=== PATIENT | female | born 1960 | race Caucasian/White ===

== ENCOUNTER 2024-02-07 09:32 | Outpatient (OUT) | payer BC, SELFPAY ==
--- NOTE | 2024-02-07 11:00 | CA_ITS ---
Patient Name: FRANCISCO ROMANO MR#: [id number] : 1960 Exam Date: 02/07/2024 Ordering Doctor: DANYEL BOONE CNP ECHOCARDIOGRAM REPORT PROCEDURE: CA ECHO DOPPLER COMPLETE INDICATIONS: Valvular regurgitation, aortic aneurysm COMPARISON: None. DESCRIPTION: COMPLETE ECHOCARDIOGRAM Real-time transthoracic echocardiography with 2D, M-mode, spectral and color flow Doppler performed. QUALITY: Technical quality was good. LEFT VENTRICLE: Normal chamber size. Normal left ventricular wall thickness. LV EF: Global left ventricular systolic function is normal. Calculated left ventricular ejection fraction is 64%. No segmental wall motion abnormalities. DIASTOLIC: Normal diastolic function. ATRIAL SEPTUM: Inadequately seen. LEFT ATRIUM: Normal chamber size. RIGHT ATRIUM: Normal chamber size. RIGHT VENTRICLE: Normal chamber size. Normal right ventricular systolic function. TRICUSPID VALVE: Normal mobility and thickness. Mild regurgitation. No evidence of pulmonary hypertension. RVSP 24mmHg MITRAL VALVE: Normal mobility and thickness. No evidence of mitral valve stenosis. There is no mitral annular calcification. Trivial mitral regurgitation. AORTIC VALVE: Normal trileaflet appearance. Thickened aortic valve. Normal leaflet mobility. No evidence of aortic valve stenosis. Mild aortic regurgitation. AORTIC ROOT: Normal diameter and appearance. Mild dilatation of the ascending aorta measuring 3.7cm. PULMONIC VALVE: Normal thickness and mobility. No stenosis. Trivial regurgitation. PERICARDIUM: No evidence of pericardial effusion. IVC: Collapses with inspirations. Normal size. CONCLUSION: 1. Global left ventricular systolic function is normal; visually estimated ejection fraction is 60 to 65% 2. Normal right ventricular size and systolic function 3. Mild tricuspid regurgitation 4. Mild aortic regurgitation 5. Mildly dilated ascending aorta Adult Echocardiography Procedure Report Left Ventricle LVEDD (3.7 - 5.6 cm): 4.52 cm LVESD (2.2 - 4.0 cm): 3.09 cm LVIVS thickness (0.6 - 1.2 cm): 0.69 cm LVPW thickness (0.5 - 1.0 cm): 0.64 cm e': 0.11 m/s E - e': 6.30 LVOT Max Gradient: 3.17 mm[Hg] LVOT Area (cm2): 0.89 m/s Peak Velocity (LVOT): 0.89 m/s Mean Velocity (LVOT): 0.55 m/s LVOT Diameter 1.89 cm Left Ventricular Ejection Fraction: 63.67 % Left Atrium LA Volume Index (2D A2C): 17.14 ml/m2 Left Atrium Systolic Dimension: 2.61 cm Mitral Valve MV E to A Ratio: 1 Mitral Valve A-Wave Peak Velocity: 0.70 m/s Mitral Valve E-Wave Peak Velocity: 0.70 m/s Right Ventricle RV Internal Diastolic Dimension: 3.67 cm Aorta AO Root Diam: 3.18 cm Ascending Ao Diam: 3.70 cm Aortic Valve AoV Area (Pe[place]): 1.96 cm2, 1.96 cm2 AoV Area (VTI): 1.86 cm2, 1.86 cm2 Deceleration [place]: 1.15 m/s2 Pressure Half-Time: 757.12 ms Peak Velocity(Antegrade Flow): 1.27 m/s Peak Gradient(Antegrade Flow): 6.41 mm[Hg] Mean Velocity(Antegrade Flow): 0.85 m/s Mean Gradient(Antegrade Flow): 3.36 mm[Hg] Velocity Time Integral: 32.45 cm Tricuspid Valve Peak Velocity (Regurgitant Flow): 2.29 m/s, 2.23 m/s Pulmonic Valve Mean Gradient: 1.33 mm[Hg] Mean Velocity: 0.54 m/s Peak Velocity: 0.75 m/s, 0.65 m/s Peak Gradient: 2.22 mm[Hg], 1.70 mm[Hg] Right Atrium Right Atrium Systolic Pressure: 53.88 ml, 53.88 ml Dictated by: Kong Martinez M.D. on 02/07/2024 at 14:59 Approved by: Kong Martinez M.D. on 02/07/2024 at 15:03
== END 2024-02-07 09:33 | disposition home or self-care (01) ==
LOC: CARD 09:36
PROVIDERS: PCP Family Medicine; Visit Provider Nurse Practitioner Family
DX: I48.0 Paroxysmal atrial fibrillation (principal); I47.10 Supraventricular tachycardia, unspecified; I36.1 Nonrheumatic tricuspid (valve) insufficiency; I77.819 Aortic ectasia, unspecified site
CPT/HCPCS: 93306

== ENCOUNTER 2024-06-05 08:21 | Emergency (ER) | payer BC, SELFPAY ==
[2024-06-05] VITALS (9 sets, daily range): BP systolic 122; BP diastolic 63; PULSE 63–72; TEMP 36.7; O2SAT 98–100
--- NOTE | 2024-06-05 08:33 | ECG_ITS ---
[facility] Test Date: 2024-06-05 Pat Name: FRANCISCO ROMANO Department: Room: - Gender: Female [employer] Driver: : 1960 Requested By: GARY MAURO Order Number: [id number] Reading MD: RUTH DACOSTA Measurements Intervals [place] Rate: 67 P: 66 ME: 130 QRS: 46 QRSD: 84 T: 62 QT: 394 QTc: 410 Interpretive Statements 1100 Sinus rhythm 9110 normal ECG Compared to ECG 11/22/2021 11:33:03 No significant changes Electronically Signed On 06-05-2024 23:07:06 EDT by RUTH DACOSTA
[2024-06-05 08:48] LABS: Basophils Absolute Auto 0.1 10^3/uL (0.0-0.1); Basophils Percent Auto 0.6 % (0.2-2.0); Eosinophils Absolute Auto 0.2 10^3/uL (0.0-0.7); Eosinophils Percent Auto 2.4 % (0.9-7.0); Hematocrit 40.6 % (36.0-48.0); Hemoglobin 13.2 g/dL (12.0-16.0); Immature Granulocytes Abs Auto 0.01 10^3/uL (0.00-0.03); Immature Granulocytes Pct Auto 0.1 % (0.0-0.5); Lymphocytes Absolute Auto 3.4 10^3/uL (1.2-3.8); Lymphocytes Percent Auto 42.8 % (20.5-60.0); Mean Corpuscular HGB Conc 32.5 g/dL (29.9-35.2); Mean Corpuscular Hemoglobin 28.6 pg (26.7-34.0); Mean Corpuscular Volume 88.1 fL (81.0-99.0); Mean Platelet Volume 10.1 fL (9.5-13.5); Monocytes Absolute Auto 0.5 10^3/uL (0.3-0.8); Monocytes Percent Auto 6.3 % (1.7-12.0); Neutrophils Absolute Auto 3.8 10^3/uL (1.4-6.5); Neutrophils Percent Auto 47.8 % (43.0-75.0); Platelet Count 265 10^3/uL (150-450); Red Blood Count 4.61 10^6/uL (4.20-5.40); Red Cell Distribution Width 13.2 % (11.0-15.0); White Blood Count 7.9 10^3/uL (4.0-11.0)
[2024-06-05 08:59] LABS: D Dimer 0.59 mg/L FEU (<=0.59)
[2024-06-05 09:02] LABS: Alanine Aminotransferase 43 U/L (14-59); Albumin Globulin Ratio 0.8; Albumin Level 3.5 g/dL (3.4-5.0); Alkaline Phosphatase 95 U/L (46-116); Anion Gap 11.3; Aspartate Amino Transferase 22 U/L (15-37); BUN Creatinine Ratio 13.7; Bilirubin Total 0.5 mg/dL (0.2-1.0); Calcium 9.3 mg/dL (8.5-10.1); Carbon Dioxide 27.7 mmol/L (21.0-32.0); Chloride 101 mmol/L (98-107); Estimated GFR (African America >60 (>=60); Estimated GFR (Non-African Ame >60 (>=60); Globulin 4.3 g/dL; Glucose 119 mg/dL (74-106); Sodium 136 mmol/L (136-145); Total Protein 7.8 g/dL (6.4-8.2)
--- NOTE | 2024-06-05 09:05 | XR_ITS ---
The [address] [address] Patient Name: FRANCISCO ROMANO MRN: [id number] date: 1960 Sex: F Assigned Patient Location: ER Current Patient Location: ER Accession/Order Number: [id number] Exam Date: 06/05/2024 09:10 Report Date: 06/05/2024 09:30 At the request of: SO SAM Procedure: XR chest 2V EXAM: XR chest 2V HISTORY: . Shortness of breath . COMPARISON: None. TECHNIQUE: Total and lateral chest FINDINGS: Heart and vascularity are unremarkable. Lungs are free of focal infiltrates. No bony abnormality is appreciated. Early spondylosis of the spine is noted. There is a slight scoliotic deformity of the spine with convexity to the right. EKG leads overlie the chest. XR/XR chest 2V IMPRESSION: No acute heart or lung disease identified. Electronically authenticated by: HAILY ANNE Date: 06/05/2024 09:30
--- NOTE | 2024-06-05 09:08 | ED_ITS ---
HPI HPI - General Adult General Chief complaint: Chest Pain Stated complaint: SOB, CHEST PAIN, DIZZY, IRREGULAR HEARTBEAT Time Seen by Provider: 06/05/24 08:24 Source: patient Mode of arrival: Wheelchair Limitations: no limitations History of Present Illness HPI narrative: Patient presents to ED complaining of heart palpitations and chest tightness. She said she has a history of atrial tachycardia and is on metoprolol for this. She said she took an extra metoprolol because she felt like her heart was palpating a lot recently. She said this morning it was really bad so she came in for further evaluation in the ED. Patient denies vomiting diaphoresis or syncope but felt lightheaded with her heart palpitations. No abdominal pain. Patient denies history of heart cath or pacemaker. She said she sees a community education specialist for management of the atrial tachycardia and palpitations. Related Data Home Medications ?Medication ?Instructions ?Recorded ?Confirmed metoprolol succinate 25 mg 25 mg PO DAILY 06/05/24 06/05/24 tablet,extended release 24 hr Allergies Allergy/AdvReac Type Severity Reaction Status Date / Time ibuprofen Allergy Severe Unknown Verified 06/05/24 08:28 flecainide Allergy Intermediate Numbness Verified 06/05/24 08:28 propafenone Allergy Intermediate Numbness Verified 06/05/24 08:28 Opioid HPI Opioid Management Most Recent Opioid Data: Last Pain Scale 4 06/05/24 08:46 Last ED Pain Assessment 06/05/24 08:46 Review of Systems ROS Status of ROS 10 or more systems reviewed and unremark able except as noted in history and below Exam Narrative Exam Narrative: Time Seen: [] Vital Signs: [Per nurse's notes.] General: [Alert] Skin: [Warm, dry, no rash.] Head: [Normocephalic, atraumatic.] Neck: [Supple, trachea midline.] Eye: [Pupils are equal, round and reactive to light, extraocular movements are intact, normal conjunctiva.] Ears, nose, mouth and throat: oral mucosa moist. Cardiovascular: [Regular rate and rhythm, no murmur.] Respiratory: [Lungs are clear to auscultation, respirations are non-labored, breath sounds are equal.] Chest wall: [No tenderness, no deformity.] Gastrointestinal: [Soft, nontender, non distended, normal bowel sounds.] MSK: 5 out of 5 muscle strength x 4 extremities no calf pain or edema Lymphatics: [No lymphadenopathy.] Psychiatric: [Cooperative, appropriate mood & affect.] Neurological: [Alert and oriented to person, place, time, and situation, no focal neurological deficit observed.] Constitutional Vital Signs, click to edit/add: Last Vital Signs Temp 98.1 F 06/05/24 08:28 Pulse 72 06/05/24 09:20 Resp 21 H 06/05/24 09:20 BP 122/63 06/05/24 08:28 Pulse Ox 98 06/05/24 09:20 O2 Del Method Room Air 06/05/24 08:45 Course Vital Signs Vital signs: Vital Signs Blood Pressure 122/63 06/05/24 08:27 Pulse Oximetry 100 06/05/24 08:27 Temperature 98.1 F 06/05/24 08:28 Pulse Rate 72 06/05/24 09:20 Respiratory Rate 21 H 06/05/24 09:20 Blood Pressure 122/63 06/05/24 08:28 Pulse Oximetry 98 06/05/24 09:20 Oxygen Delivery Method Room Air 06/05/24 08:45 Medical Decision Making MDM Narrative Medical decision making narrative: Patient's labs are negative for acute findings. Blood pressure is normal, heart rate normal, no arrhythmias seen in ED. EKG nonacute. Thyroid normal and D- dimer negative. Patient is to follow-up with her family doctor, return to ED if worsening symptoms. See cardiology as scheduled in June, try and move the appointment up if they have any openings Patient states she will call Differential Diagnosis Differential Diagnosis: Hyperthyroid, angina, anxiety, palpitations, Lab Data Lab results reviewed: Yes I reviewed the patient's lab results Labs: Lab Results 06/05/24 Range/Units 08:36 WBC 7.9 (4.0-11.0) 10^3/uL RBC 4.61 (4.20-5.40) 10^6/uL Hgb 13.2 (12.0-16.0) g/dL Hct 40.6 (36.0-48.0) % MCV 88.1 (81.0-99.0) fL MCH 28.6 (26.7-34.0) pg MCHC 32.5 (29.9-35.2) g/dL RDW 13.2 (11.0-15.0) % Plt Count 265 (150-450) 10^3/uL MPV 10.1 (9.5-13.5) fL Neut % (Auto) 47.8 (43.0-75.0) % Lymph % (Auto) 42.8 (20.5-60.0) % [place] % (Auto) 6.3 (1.7-12.0) % Eos % (Auto) 2.4 (0.9-7.0) % Baso % (Auto) 0.6 (0.2-2.0) % Neut # (Auto) 3.8 (1.4-6.5) 10^3/uL Lymph # (Auto) 3.4 (1.2-3.8) 10^3/uL [place] # (Auto) 0.5 (0.3-0.8) 10^3/uL Eos # (Auto) 0.2 (0.0-0.7) 10^3/uL Baso # (Auto) 0.1 (0.0-0.1) 10^3/uL Abs Immat Gran (auto) 0.01 (0.00-0.03) 10^3/uL Imm/Tot Granulo (auto) 0.1 (0.0-0.5) % D-Dimer 0.59 (<=0.59) mg/L FEU Sodium 136 (136-145) mmol/L Potassium 4.0 (3.5-5.1) mmol/L Chloride 101 (98-107) mmol/L Carbon Dioxide 27.7 (21.0-32.0) mmol/L Anion Gap 11.3 BUN 10.0 (7.0-18.0) mg/dL Creatinine 0.73 (0.55-1.02) mg/dL Est GFR ( Amer) >60 (>=60) Est GFR (Non-Af Amer) >60 (>=60) BUN/Creatinine Ratio 13.7 Glucose 119 H (74-106) mg/dL Calcium 9.3 (8.5-10.1) mg/dL Total Bilirubin 0.5 (0.2-1.0) mg/dL AST 22 (15-37) U/L ALT 43 (14-59) U/L Alkaline Phosphatase 95 (46-116) U/L Troponin I High Sens <4.0 L (4.0-51.3) pg/mL Total Protein 7.8 (6.4-8.2) g/dL Albumin 3.5 (3.4-5.0) g/dL Globulin 4.3 g/dL Albumin/Globulin Ratio 0.8 TSH & Free T4 Interp 1.372 (0.358-3.740) uIU/mL Imaging Data Chest x-ray: Radiologist's impression: ITS Impressions Chest X-Ray 06/05/24 09:05 IMPRESSION: No acute heart or lung disease identified. Electronically authenticated by: HAILY ANNE Date: 06/05/2024 09:30 ECG Data Attestation: I personally reviewed and interpreted this ECG as follows: Interpretation: EKG INTERPRETATION Time: []829 Rate: []67 Rhythm: _ []Normal sinus rhythm ST segments: _ []No acute ST elevation or depression T waves: _ [] Ectopy: _ [] P wave/WV interval: _ [] QRS interval: _ [] QT interval: _ [] Comparison: _ [] Comparison EKG date: [] Performed by: [self] Discharge Plan Discharge Chief Complaint: Chest Pain Clinical Impression: Heart palpitations Patient Disposition: Home, Self-Care Time of Disposition Decision: 09:35 Condition: Good Mode of Transportation: Private Vehicle Prescriptions / Home Meds: No Action metoprolol succinate 25 mg tablet extended release 24 hr 25 mg PO DAILY Print Language: Taiwanese Referrals: GARY MAURO [Primary Care Provider] - 1 week
[2024-06-05 09:11] LABS: TSH W/ REFLEX FT4 1.372 uIU/mL (0.358-3.740); Troponin I High Sensitivity <4.0 pg/mL (4.0-51.3)
== END 2024-06-05 10:02 | disposition home or self-care (01) ==
PROVIDERS: Emergency Provider Emergency Medicine; PCP Family Medicine
DX: R00.2 Palpitations (principal); Z79.899 Other long term (current) drug therapy
CPT/HCPCS: 36415; 71046; 80053; 84443; 84484; 85025; 85378; 93005; 99285